=== PATIENT | male | born 1965 | race Two or more races ===

== ENCOUNTER 2017-08-01 22:04 | Emergency (ER) | payer OTHER ==
[~2017-08-01] VITALS: Ht 185.4 cm; Wt 123.4 kg
[2017-08-01 22:15] VITALS: Ht 185.4 cm; Wt 123.4 kg
[2017-08-01 23:50] LABS: CARBON DIOXIDE 27.2 mmol/L (21-32); CHLORIDE SERUM 102 mmol/L (98-107); CREATININE SERUM 1.1 mg/dL (0.7-1.3); GFR1 > 60 mL/min; GLUCOSE SERUM 205 mg/dL (74-106); SODIUM SERUM 137 mmol/L (136-145)
[2017-08-01 23:51] LABS: PLATELET COUNT 317 x10^3mcL (130-400); RED CELL DISTRIBUTION WIDTH 12.7 % (11.5-14.5)
[2017-08-01 23:52] LABS: BASOPHIL % 0.6 % (0-2)
[2017-08-01 23:55] LABS: ALBUMIN 3.4 g/dL (3.4-5.0); ALKALINE PHOSPHATASE 123 U/L (46-116); ALT/SGPT 92 U/L (16-63); AST/SGOT 50 U/L (15-37); BILIRUBIN TOTAL 0.39 mg/dL (0.20-1.00)
[2017-08-02 00:57] VITALS: BP 116/77
== END 2017-08-02 00:57 | disposition home or self-care (01) ==
LOC: ED 22:04
PROVIDERS: Emergency Medicine
DX: R07.9 Chest pain, unspecified (principal); M79.1 Myalgia; I10 Essential (primary) hypertension; E11.9 Type 2 diabetes mellitus without complications
CPT/HCPCS: 36415; 85378; J1885